=== PATIENT | male | born 1940 | race Two or more races ===

== ENCOUNTER 2021-08-27 22:50 | Inpatient (IN) | payer MEDICARE, OTHER ==
[~2021-08-27] VITALS: Ht 180.3 cm; Wt 90.7 kg
--- NOTE | 2021-08-27 23:07 | NUR ---
ZAHIRA 41 FROM [facility] C/O OF 2 MIN SEIZURE PT HAS NOT GOTTEN HIS DILANTIN. PT AMS AT THIS TIME A/OX0. ON SIMLPE MASK 8LPM SATTING AT 95%. SEIZURE SAFETY PRECAUTIONS IN PLACE.
--- NOTE | 2021-08-27 23:20 | NUR ---
LFA #20G S/L; PATENT AND INTACT. BLOOD COLLECTED AND SENT TO LAB
--- NOTE | 2021-08-27 23:20 | NUR ---
BS 252 DR. PATO MANJARREZ AWARE.
--- NOTE | 2021-08-27 23:34 | NUR ---
URINE COLLECTED AND SENT TO LAB
[2021-08-27 23:43] LABS: BASOPHILS # (AUTO) 0.1 K/uL (0.0-0.2); BASOPHILS % (AUTO) 1.2 % (0.0-2.0); EOSINOPHILS % (AUTO) 2.3 % (0.0-6.0); HEMATOCRIT 40 % (39-51); HEMOGLOBIN 13.4 g/dL (13.5-17.5); LYMPHOCYTES # (AUTO) 4.1 K/uL (0.8-4.8); LYMPHOCYTES % (AUTO) 37.7 % (20.0-44.0); MEAN CORPUSCULAR HGB CONC 34 g/dl (31.0-36.0); MEAN CORPUSCULAR VOLUME 93 fL (80-96); MONOCYTES # (AUTO) 0.6 K/uL (0.1-1.30); MONOCYTES % (AUTO) 5.9 % (2.0-12.0); NEUTROPHILS # (AUTO) 5.8 K/uL (1.8-8.9); NEUTROPHILS % (AUTO) 52.9 % (43.0-81.0); PLATELET COUNT (AUTO) 278 K/uL (150-450); RED BLOOD CELL COUNT(AUTO) 4.25 MIL/uL (4.5-6.0); WHITE BLOOD COUNT (AUTO) 10.9 K/uL (4.3-11.0)
[2021-08-27] MEDS ORDERED: PHENYTOIN SODIUM IV 100 MG/2ML VIAL ONE (23:48)
[2021-08-27 23:52] LABS: BILIRUBIN,URINE NEGATIVE (NEGATIVE); COLOR,URINE YELLOW (YELLOW); LEUKOCYTE ESTERASE ,URINE NEGATIVE (NEGATIVE); NITRITE, URINE NEGATIVE (NEGATIVE); PROTEIN,URINE TRACE mg/dl (NEGATIVE); UGLUCOSE >=1000 mg/dL (NEGATIVE); UROBILINOGEN,URINE 0.2 EU/dL (0.2)
[2021-08-27 23:58] LABS: BACTERIA,URINE Rare /HPF (None Seen); SQUAMOUS EPITHELIAL CELL,UR Few /HPF (None Seen); WBC,URINE NONE SEEN /HPF (0-3)
[2021-08-28] MEDS ORDERED: NS 0.9% IV ONE ×2
[2021-08-28] MEDS ORDERED: PHENYTOIN SODIUM IV ONE ×2
--- NOTE | 2021-08-28 | NUR ---
MRSA SWAB COLLECTED AND SENT TO LAB. PATIENT'S BELONGINGS LIST DONE.
--- NOTE | 2021-08-28 00:04 | NUR ---
COVID ANTIGEN SWAB COLLECTED AND SENT TO LAB
[2021-08-28 00:10] LABS: ALANINE AMINOTRANSFERASE 22 U/L (12-78); ALCOHOL, BLOOD < 3 mg/dL (0-0); ALKALINE PHOSPHATASE 143 U/L (46-116); ASPARTATE AMINOTRANSFERASE 17 U/L (15-37); BILIRUBIN,DIRECT 0.1 mg/dL (0.0-0.2); BILIRUBIN,TOTAL 0.3 mg/dL (0.2-1.0); CALCIUM, SERUM 8.7 mg/dL (8.5-10.1); CARBON DIOXIDE 35 mmol/L (21-32); CHLORIDE 96 mmol/L (98-107); CREATININE 0.8 mg/dL (0.6-1.3); GLUCOSE 278 mg/dL (74-106); SODIUM SERUM 136 mmol/L (136-145); TOTAL PROTEIN, SERUM 8.2 g/dL (6.4-8.2); UREA NITROGEN, BLOOD 20 mg/dL (7-18)
[2021-08-28 00:12] LABS: POTASSIUM 2.5 mmol/L (3.5-5.1)
--- NOTE | 2021-08-28 00:12 | NUR ---
POTASSIUM 2.5. DR. PATO MANJARREZ AWARE.
[2021-08-28 00:25] LABS: SERUM AMMONIA 8 umol/L (11-32)
[2021-08-28] MEDS ORDERED: POTASSIUM CL. PREMIX PERIPHER. 100 ML ONE (00:33)
[2021-08-28] MEDS: POTASSIUM CL. PREMIX PERIPHER. 50 ML IV SCH ×10 (00:42→14:19)
--- NOTE | 2021-08-28 00:43 | NUR ---
PT RETURNED TO ER BED [address]
[2021-08-28] MEDS ORDERED: Magnesium 1GM/D5W 100ML PREMIX 100 ML IV SCH (01:30)
[2021-08-28] MEDS ORDERED: MAGNESIUM HYDROXIDE 30 ML UDC PO PRN ×2 (01:30→09:30)
[2021-08-28] MEDS ORDERED: MAG HYDROX/AL HYDROX/SIMETH 30 ML UDC PO PRN (01:30)
[2021-08-28] MEDS ORDERED: ZOLPIDEM TARTRATE 5 MG TABLET PO PRN (01:30)
[2021-08-28] MEDS ORDERED: ONDANSETRON HCL/PF 4 MG/2 ML VIAL IVP PRN (01:30)
[2021-08-28] MEDS ORDERED: ACETAMINOPHEN 325 MG TABLET PO PRN (01:30)
[2021-08-28] MEDS ORDERED: Z GUARD REMEDY 4 OZ OINT TP PRN (01:30)
--- NOTE | 2021-08-28 02:25 | NUR ---
REPORT GIVEN TO RICHARD Pierson RN FOR ZOHRA
--- NOTE | 2021-08-28 02:45 | NUR ---
RFA #20G S/L PATENT AND INTACT
[2021-08-28] MEDS: Magnesium 1GM/D5W 100ML PREMIX 100 ML IV SCH ×2 (02:56→03:48)
--- NOTE | 2021-08-28 02:59 | NUR ---
TRANSFERRED TO 327 UNDER ACLS
--- NOTE | 2021-08-28 03:00 | NUR ---
EXCELLENCE MANAGER ADMITTING NOTES PATIENT ARRIVED ON UNIT VIA GURNEY, ACCOMPANIED BY 2 ER STAFF; PATIENT A/OX1, MUMBLES, OPENS EYES, RESPONDS TO NAME; BREATHING EVEN BUT LABORED; PATIENT ON 6LPM VIA SIMPLE MASK; PATIENT CONFUSED AND ATTEMPTING TO TAKE OFF MASK, PATIENT PLACED ON 6LPM VIA NC, TOLERATING WELL; SATTING 99%; VSS. LEFT CHEST WALL PACEMAKER PRESENT; TELE MONITOR READS VPACING 76BPM; PATIENT CURRENTLY RECEIVING 1ST BAG OF MAGNESIUM (STARTED IN ER). PER ER NURSE, 2 BAGS OF 8 ORDERED ADMINISTERED PRIOR TO ARRIVAL TO UNIT. BELONGINGS CHECKED, SKIN ASSESSMENT COMPLETED; SKIN INTACT; PATIENT HAS LFA #20 AND R FA #20 S/L, BOTH INTACT AND PATENT, TOLERATING IVF WELL; PATIENT ORIENTED TO UNIT AND TO STAFF, UNABLE TO COMPREHEND AT THIS TIME; SAFETY PRECAUTIONS IMPLEMENTED, SIDE RAILSX2 UP, WILL CONT TO MONITOR
--- NOTE | 2021-08-28 04:44 | NUR ---
AIRCRAFT REFUELLER NOTES PATIENT ON BAG 4 OF POTASSIUM; POTASSIUM BEHIND, PATIENT CAME UP TO UNIT AROUND 0300. CHARGE NURSE IS AWARE; WILL INFORM DAY SHIFT
--- NOTE | 2021-08-28 06:30 | NUR ---
BOTTOM SPRAYER NOTES BLOOD SUGAR 328, PAGED EPIC TO CONFIRM SLIDING SCALE; NO ANSWER; PATIENT IS CURRENTLY NPO; CHARGE NURSE AWARE; WILL INFORM DAY SHIFT REGARDING SLIDING SCALE;
--- NOTE | 2021-08-28 06:57 | NUR ---
INDIGO MIXER CLOSING NOTES PATIENT RESTING IN BED, PATIENT A/OX1, MUMBLES, OPENS EYES, RESPONDS TO NAME; BREATHING EVEN AND UNLABORED; PATIENT PLACED ON 6LPM VIA NC, TOLERATING WELL; SATTING 99%; LEFT CHEST WALL PACEMAKER PRESENT; TELE MONITOR READS VPACING 76BPM; PATIENT FINISHED MAGNESIUM ORDER; ADMINISTERED 6 OF 8 BAGS OF POTASSIUM ORDERED; WILL ENDORSE TO ONCOMING SHIFT; PATIENT HAS LFA #20 AND R FA #20 S/L, BOTH INTACT AND PATENT, TOLERATING IVF WELL; ACCU CHECK ORDERED BUT MD DID NOT CLARIFY IF MILD OR MODERATE SLIDING SCALE; ORDER SET AUTOMATICALLY ORDERED MILD SCALE; WILL ENDORSE TO AM SHIFT TO CONFIRM; PATIENT IS NPO; CHARGE NURSE AWARE; ALL NEEDS RENDERED; SAFETY PRECAUTIONS IMPLEMENTED, SIDE RAILSX2 UP, WILL ENDORSE ZOHRA TO ONCOMING SHIFT;
[2021-08-28 07:05] LABS: BASOPHILS % (AUTO) 0.3 % (0.0-2.0); HEMATOCRIT 38 % (39-51); HEMOGLOBIN 12.5 g/dL (13.5-17.5); LYMPHOCYTES # (AUTO) 2.9 K/uL (0.8-4.8); LYMPHOCYTES % (AUTO) 18.7 % (20.0-44.0); MEAN CORPUSCULAR HGB CONC 33 g/dl (31.0-36.0); MEAN CORPUSCULAR VOLUME 94 fL (80-96); MONOCYTES # (AUTO) 0.7 K/uL (0.1-1.30); MONOCYTES % (AUTO) 4.6 % (2.0-12.0); NEUTROPHILS # (AUTO) 11.9 K/uL (1.8-8.9); NEUTROPHILS % (AUTO) 76.4 % (43.0-81.0); PLATELET COUNT (AUTO) 257 K/uL (150-450); RED BLOOD CELL COUNT(AUTO) 4.04 MIL/uL (4.5-6.0); WHITE BLOOD COUNT (AUTO) 15.6 K/uL (4.3-11.0)
[2021-08-28] MEDS ORDERED: BLOOD SUGAR DIAGNOSTIC 1 EACH STRIP IN SCH (07:30)
[2021-08-28 08:18] LABS: CALCIUM, SERUM 8.7 mg/dL (8.5-10.1); CARBON DIOXIDE 35 mmol/L (21-32); CHLORIDE 94 mmol/L (98-107); CREATININE 0.8 mg/dL (0.6-1.3); GLUCOSE 297 mg/dL (74-106); MAGNESIUM 1.9 mg/dL (1.8-2.4); PHOSPHORUS 2.4 mg/dL (2.5-4.9); POTASSIUM 3.2 mmol/L (3.5-5.1); SODIUM SERUM 136 mmol/L (136-145); UREA NITROGEN, BLOOD 14 mg/dL (7-18)
[2021-08-28] MEDS ORDERED: LACT10SO3 PO (08:36)
[2021-08-28] MEDS ORDERED: APIX5TAB PO (08:36)
[2021-08-28] MEDS ORDERED: ONDA4TAB5 PO (08:36)
[2021-08-28] MEDS ORDERED: PHEN100C12 PO (08:36)
[2021-08-28] MEDS ORDERED: ATOR10TA PO (08:36)
[2021-08-28] MEDS ORDERED: LEVO50TA8 PO (08:36)
[2021-08-28] MEDS ORDERED: NA P133E RC (08:36)
[2021-08-28] MEDS ORDERED: ACET-868 PO (08:36)
[2021-08-28] MEDS ORDERED: LOSA50TA39 PO (08:36)
[2021-08-28] MEDS ORDERED: HYDR-4076 PO (08:36)
[2021-08-28] MEDS ORDERED: TAMS-12 PO (08:36)
[2021-08-28] MEDS ORDERED: FINA5TAB11 PO (08:36)
[2021-08-28] MEDS ORDERED: INSU100V27 SQ (08:36)
[2021-08-28] MEDS ORDERED: ESCI5TAB PO (08:36)
[2021-08-28] MEDS ORDERED: POLY17PO4 PO (08:36)
[2021-08-28] MEDS ORDERED: FURO-144 PO (08:36)
[2021-08-28] MEDS ORDERED: METO25TA20 PO (08:36)
[2021-08-28] MEDS ORDERED: MAGN400O6 PO (08:36)
[2021-08-28] MEDS ORDERED: FAMO20TA8 PO (08:36)
[2021-08-28] MEDS ORDERED: BISA10SU11 RC (08:36)
[2021-08-28] MEDS ORDERED: BISACODYL SUPP (10 MG) 10 MG/SUPP.RECT SUPP.RECT RC PRN (09:30)
[2021-08-28] MEDS ORDERED: hydrALAZINE HCL 25 MG TABLET PO PRN (09:30)
[2021-08-28] MEDS ORDERED: NA PHOS,M-B/NA PHOS,DI-BA 1 EA ENEMA RC PRN (09:30)
[2021-08-28] MEDS ORDERED: DEXTROSE 50%-WATER 50 ML DISP.SYRIN IV PRN (09:30)
[2021-08-28] MEDS: CEFEPIME 1 GM in IV D5W 50 ML IV SCH ×2 (09:54→21:15)
[2021-08-28] MEDS: PANTOPRAZOLE 40 MG VIAL IV SCH (10:48)
[2021-08-28] MEDS ORDERED: Sodium Phosphate 30 MMOL in IV NS 0.9% 250 ML IV SCH (11:00)
[2021-08-28 11:09] LABS: THYROID STIMULATING HORMONE 0.832 uIU/mL (0.358-3.74)
[2021-08-28] MEDS: BLOOD SUGAR DIAGNOSTIC 1 EACH STRIP IN SCH ×3 (12:03→21:31)
[2021-08-28 12:12] LABS: ABG BASE EXCESS 12.2 mmol/L; ABG OXYGEN SATURATION 96.3 % (92.0-98.5); ABG PCO2 42.5 mmHg (35.0-45.0); ABG PH 7.545 (7.350-7.450); AaDO2 161.3 mmHg; COHb 0.4 % (0.5-1.5); MetHb 0.3 % (0.0-1.5); O2Hb 95.6 % (94.0-97.0); SITE, ABG Right Brachial; VENT MODE, BG nasal cannula
[2021-08-28] MEDS: INSULIN REGULAR, HUMAN 100 UNIT/ML 3 ML VIAL SQ PRN ×2 (12:41→21:31)
[2021-08-28] MEDS ORDERED: PHENYTOIN SODIUM IV 100 MG/2ML VIAL IV SCH (13:00)
[2021-08-28] MEDS: ACETAMINOPHEN 650 MG/SUPP.RECT RC PRN (13:28)
--- NOTE | 2021-08-28 13:28 | NUR ---
PATIENT HAVING 103 F FEVER, COOLING MEASURES AND TYLENOL 650MG SUPPOSITORY WILL BE ADMINISTERED. WILL CONTINUE TO MONITOR.
[2021-08-28] MEDS ORDERED: ENOXAPARIN SODIUM 40 MG/0.4 ML DISP.SYRIN SQ SCH (14:00)
[2021-08-28] MEDS: PHENYTOIN SODIUM IV 100 MG/2ML VIAL IV SCH ×2 (15:38→21:16)
[2021-08-28] MEDS: LOSARTAN POTASSIUM 50 MG TABLET PO SCH (17:00)
[2021-08-28] MEDS: APIXABAN 5 MG TABLET PO SCH (17:00)
[2021-08-28] MEDS: METOPROLOL TARTRATE 25 MG TABLET PO SCH (17:00)
[2021-08-28] MEDS: FUROSEMIDE 40 MG TABLET PO SCH (17:00)
[2021-08-28] MEDS ORDERED: IV D5/ 0.9% NACL 1,000 ML IV PRN (18:00)
--- NOTE | 2021-08-28 19:25 | NUR ---
SAP BASIS CONSULTANT OPENING NOTES PATIENT RESTING IN BED, PATIENT A/OX0-1, MUMBLES, OPENS EYES, RESPONDS TO NAME; BREATHING EVEN AND UNLABORED; PATIENT PLACED ON 6LPM VIA NC, TOLERATING WELL; SATTING 99%; LEFT CHEST WALL PACEMAKER PRESENT; TELE MONITOR READS VPACING 80BPM; PATIENT HAS LFA #20 AND R FA #20 S/L, BOTH INTACT AND PATENT, TOLERATING IVF WELL; PATIENT IS NPO, PER MD NO MEDS BY MOUTH UNTIL FULLY AWAKE; CHARGE NURSE AWARE; PER PREVIOUS SHIFT, AWAITING FOR DAUGHTER TO CALL BACK FOR CONSENT REGARDING MRI OF BRAIN WITH CONTRAST; SAFETY PRECAUTIONS IMPLEMENTED, SIDE RAILSX2 UP, WILL CONT TO MONITOR
--- NOTE | 2021-08-28 19:39 | NUR ---
ELECTRONIC ENGINEERING TECHNICIAN NOTES SPOKE WITH DAUGHTER DANIEL, FOR CONSENT FOR MRI OF BRAIN WITH CONTRAST; DAUGHTER CONSENTED VIA TELEPHONE CALL; WITNESSED BY KEVON RICO; CHARGE NURSE AWARE; UNKNOWN SCHEDULE FOR MRI, WILL AWAIT ORDERS Addendum: 08/28/21 at 1955 by RAFAEL JOHNSON RN PER DAUGHTER, NORMAL FOR PATIENT TO BE CONFUSED AND SLEEPY POST SEIZURES; WILL CONT TO MONITOR
[2021-08-28 20:00] VITALS: BP 100/49
[2021-08-28] MEDS: ATORVASTATIN 10 MG TABLET PO SCH (21:20)
[2021-08-28] MEDS: TAMSULOSIN 0.4 MG CAP.SR.24H PO SCH (21:20)
[2021-08-29] VITALS: BP 106/53
[2021-08-29 04:00] VITALS: BP 125/55
[2021-08-29] MEDS: PHENYTOIN SODIUM IV 100 MG/2ML VIAL IV SCH (05:35)
[2021-08-29 07:24] LABS: BASOPHILS # (AUTO) 0.1 K/uL (0.0-0.2); BASOPHILS % (AUTO) 0.5 % (0.0-2.0); EOSINOPHILS % (AUTO) 0.1 % (0.0-6.0); HEMATOCRIT 39 % (39-51); HEMOGLOBIN 13.2 g/dL (13.5-17.5); LYMPHOCYTES # (AUTO) 3.5 K/uL (0.8-4.8); LYMPHOCYTES % (AUTO) 20.7 % (20.0-44.0); MEAN CORPUSCULAR HGB CONC 34 g/dl (31.0-36.0); MEAN CORPUSCULAR VOLUME 94 fL (80-96); MONOCYTES # (AUTO) 1.2 K/uL (0.1-1.30); NEUTROPHILS # (AUTO) 12.1 K/uL (1.8-8.9); NEUTROPHILS % (AUTO) 71.7 % (43.0-81.0); PLATELET COUNT (AUTO) 239 K/uL (150-450); WHITE BLOOD COUNT (AUTO) 16.9 K/uL (4.3-11.0)
[2021-08-29] MEDS: INSULIN REGULAR, HUMAN 100 UNIT/ML 3 ML VIAL SQ PRN ×4 (07:27→22:17)
[2021-08-29] MEDS: BLOOD SUGAR DIAGNOSTIC 1 EACH STRIP IN SCH ×4 (07:27→22:03)
[2021-08-29] MEDS: LEVOTHYROXINE SODIUM 50 MCG TABLET PO SCH ×2 (07:30→08:59)
--- NOTE | 2021-08-29 07:30 | NUR ---
PORTER MARINA OPENING NOTES RECEIVED PATIENT RESTING ON BED AND A/O X1, MUMBLES, OPENS EYES, RESPONDS TO NAME; BREATHING EVEN AND UNLABORED. ON O2 AT 6LPM VIA NASAL CANNULA TOLERATING WELL. NO SOB NOTED. NOT IN DISTRESS. WITH LEFT CHEST WALL PACEMAKER. ON TELE MONITOR CURRENTLY READING A PACING AT 70BPM. WITH IV ACCESS AT LFA #20 AND R FA #20 S/L, BOTH INTACT AND PATENT, TOLERATING IVF WELL. WITH NO SIGNS OF PAIN VIA FLACC LEVEL OF PAIN. SAFETY MEASURES IN PLACED. CALL LIGHT WITHIN REACH. BED ON LOWEST LOCKED POSITION, SIDE RAILS UP X2. WILL CONTINUE TO MONITOR.
--- NOTE | 2021-08-29 07:33 | NUR ---
QUALITY ASSURANCE NURSE CLOSING NOTES PATIENT RESTING IN BED, PATIENT A/OX0-1, MUMBLES, OPENS EYES, RESPONDS TO NAME; BREATHING EVEN AND UNLABORED; PATIENT PLACED ON 6LPM VIA NC, TOLERATING WELL; SATTING 99%; LEFT CHEST WALL PACEMAKER PRESENT; TELE MONITOR READS VPACING 70 - 80SBPM; PATIENT HAS LFA #20 AND R FA #20 S/L, BOTH INTACT AND PATENT, TOLERATING IVF WELL; PATIENT IS NPO, PER MD NO MEDS BY MOUTH UNTIL FULLY AWAKE; CHARGE NURSE AWARE; POSSIBLE MRI OF BRAIN WITH CONTRAST LATER TODAY, ONCOMING SHIFT MADE AWARE; ALL NEEDS RENDERED; SAFETY PRECAUTIONS IMPLEMENTED, SIDE RAILSX2 UP, WILL ENDORSE ZOHRA TO ONCOMING SHIFT
[2021-08-29] MEDS: LOSARTAN POTASSIUM 50 MG TABLET PO SCH ×3 (08:29→16:21)
[2021-08-29] MEDS: APIXABAN 5 MG TABLET PO SCH ×3 (08:30→16:22)
[2021-08-29] MEDS: POLYETHYLENE GLYCOL 3350 17 GM POWD.PACK PO SCH ×2 (08:30→08:57)
[2021-08-29] MEDS: ESCITALOPRAM OXALATE (10 MG) 10 MG TABLET PO SCH ×2 (08:30→08:58)
[2021-08-29] MEDS: METOPROLOL TARTRATE 25 MG TABLET PO SCH ×3 (08:30→16:20)
[2021-08-29] MEDS: FUROSEMIDE 40 MG TABLET PO SCH ×2 (08:30→08:58)
[2021-08-29] MEDS: FINASTERIDE (5 MG) 5 MG TABLET PO SCH ×2 (08:31→08:59)
[2021-08-29] MEDS: CEFEPIME 1 GM in IV D5W 50 ML IV SCH ×2 (08:35→22:37)
[2021-08-29] MEDS: PANTOPRAZOLE 40 MG VIAL IV SCH (08:35)
[2021-08-29 09:17] LABS: CREATININE 0.7 mg/dL (0.6-1.3); MAGNESIUM 1.9 mg/dL (1.8-2.4); PHOSPHORUS 3.1 mg/dL (2.5-4.9)
[2021-08-29] MEDS: POTASSIUM CHLORIDE 20 MEQ TAB.PRT.SR PO SCH ×3 (10:33→13:19)
[2021-08-29] MEDS ORDERED: PHENYTOIN SODIUM IV 100 MG/2ML VIAL IV SCH ×2 (13:00)
[2021-08-29] MEDS ORDERED: phenytoin SODIUM IV 400 MG in IV NS 0.9% 50 ML IV SCH (13:00)
[2021-08-29] MEDS: phenytoin SODIUM IV 300 MG in IV NS 0.9% 50 ML IV SCH ×2 (13:27→20:43)
[2021-08-29] MEDS: FUROSEMIDE 40 MG/4 ML VIAL IV SCH ×2 (16:20→20:44)
--- NOTE | 2021-08-29 19:30 | NUR ---
RN OPENING NOTE PATIENT RESTING ON BED, A/O X 1-2, OPENS EYES, RESPONDS TO TOUCH AND VERBAL STIMULI. PATIENT CURRENTLY ON 6 LPM VIA NASAL CANNULA, TOLERATING WELL NOT IN ANY RESPIRATORY DISTRESS, BREATHING EVEN AND UNLABORED. WITH LEFT CHEST WALL PACEMAKER, TELE MONITOR CURRENTLY READS V PACING AT 73 BPM. IV ACCESS ON LFA 20 G INFILTRATED AND PATIENT COMPLAINS OF PAIN WHEN FLUSHED, R FA 20 G ALSO INFILTRATED. WILL INSERT NEW IV ACCESS. PATIENT DOES NOT REPORT OF ANY BODY PAIN AT THIS TIME. SAFETY MEASURES IN PLACE: CALL LIGHT WITHIN REACH, BED LOCKED AND IN THE LOWEST POSITION, SIDE RAILS UP X 3. WILL MONITOR PATIENT CLOSELY.
--- NOTE | 2021-08-29 19:31 | NUR ---
CASINO FLOOR RUNNER CLOSING NOTES PATIENT RESTING ON BED AND A/O X1-2, OPENS EYES, RESPONDS TO NAME; BREATHING EVEN AND UNLABORED. ON O2 AT 6LPM VIA NASAL CANNULA TOLERATING WELL. NO SOB NOTED. NOT IN DISTRESS. WITH LEFT CHEST WALL PACEMAKER. ON TELE MONITOR CURRENTLY READING V PACING AT 73BPM. WITH IV ACCESS AT LFA #20 AND R FA #20 S/L, BOTH INTACT AND PATENT, TOLERATING IVF WELL. WITH NO SIGNS OF PAIN VIA FLACC LEVEL OF PAIN. SAFETY MEASURES IN PLACED. CALL LIGHT WITHIN REACH. BED ON LOWEST LOCKED POSITION, SIDE RAILS UP X2. WILL ENDORSE TO NEXT SHIFT FOR ZOHRA.
[2021-08-29 20:00] VITALS: BP 118/64
--- NOTE | 2021-08-29 21:25 | NUR ---
MULTIPLE PIV ATTEMPTS UNSUCCESSFUL BY THIS RN AND CHARGE NURSE, WILL CALL HEAD MIXER TO INSERT IV.
--- NOTE | 2021-08-29 22:00 | NUR ---
VALARIE JITTERBUG OPERATOR INSERTED R WRIST 22 G, PATENT AND INTACT.
[2021-08-29] MEDS: TAMSULOSIN 0.4 MG CAP.SR.24H PO SCH (22:03)
[2021-08-29] MEDS: ATORVASTATIN 10 MG TABLET PO SCH (22:03)
--- NOTE | 2021-08-29 22:15 | NUR ---
BS 180 MG/DL- 4 UNITS INSULIN COVERAGE GIVEN. WILL MONITOR FOR HYPO/HYPERGLYCEMIA.
[2021-08-30] VITALS: BP 116/58
[2021-08-30 04:00] VITALS: BP 124/60
[2021-08-30] MEDS: INSULIN REGULAR, HUMAN 100 UNIT/ML 3 ML VIAL SQ PRN ×4 (06:34→21:08)
[2021-08-30] MEDS: BLOOD SUGAR DIAGNOSTIC 1 EACH STRIP IN SCH ×4 (06:35→21:00)
--- NOTE | 2021-08-30 07:09 | NUR ---
RN CLOSING NOTE PATIENT RESTING ON BED, A/O X 1, OPENS EYES, RESPONDS TO TOUCH AND VERBAL STIMULI. PATIENT CURRENTLY ON 6 LPM VIA NASAL CANNULA, TOLERATING WELL NOT IN ANY RESPIRATORY DISTRESS, BREATHING EVEN AND UNLABORED. WITH LEFT CHEST WALL PACEMAKER, TELE MONITOR CURRENTLY READS V PACING AT 80 BPM. R WRIST 22 G PATENT AND INTACT, SALINE LOCKED AT THIS TIME. PATIENT DOES NOT REPORT OF ANY BODY PAIN AT THIS TIME. SAFETY MEASURES IN PLACE: CALL LIGHT WITHIN REACH, BED LOCKED AND IN THE LOWEST POSITION, SIDE RAILS UP X 3. ALL NEEDS MET AND ATTENDED, ALL ORDERS CARRIED OUT. WILL ENDORSE TO DAY SHIFT NURSE FOR ZOHRA.
[2021-08-30 07:10] LABS: BASOPHILS # (AUTO) 0.2 K/uL (0.0-0.2); EOSINOPHILS % (AUTO) 0.7 % (0.0-6.0); HEMATOCRIT 42 % (39-51); LYMPHOCYTES # (AUTO) 3.8 K/uL (0.8-4.8); LYMPHOCYTES % (AUTO) 22.7 % (20.0-44.0); MEAN CORPUSCULAR HGB CONC 33 g/dl (31.0-36.0); MEAN CORPUSCULAR VOLUME 95 fL (80-96); MONOCYTES # (AUTO) 1.1 K/uL (0.1-1.30); MONOCYTES % (AUTO) 6.5 % (2.0-12.0); NEUTROPHILS # (AUTO) 11.5 K/uL (1.8-8.9); NEUTROPHILS % (AUTO) 69.1 % (43.0-81.0); PLATELET COUNT (AUTO) 213 K/uL (150-450); RED BLOOD CELL COUNT(AUTO) 4.45 MIL/uL (4.5-6.0); WHITE BLOOD COUNT (AUTO) 16.7 K/uL (4.3-11.0)
[2021-08-30 07:26] LABS: CALCIUM, SERUM 7.9 mg/dL (8.5-10.1); CREATININE 0.8 mg/dL (0.6-1.3); POTASSIUM 3.2 mmol/L (3.5-5.1)
--- NOTE | 2021-08-30 07:30 | NUR ---
TOBACCO SORTER OPENING NOTE RECEIVED PATIENT RESTING ON BED, A/O X 1, OPENS EYES, WITH VERBAL AND TACTILE STIMULI. ON O2 AT 6 LPM VIA NASAL CANNULA, TOLERATING WELL. NO RESPIRATORY DISTRESS NOTED. BREATHING EVEN AND UNLABORED. WITH LEFT CHEST WALL PACEMAKER, ON TELE MONITOR. R WRIST 22 G PATENT AND INTACT, SALINE LOCKED AT THIS TIME. NO PAIN AT THIS TIME. SAFETY MEASURES IN PLACE, CALL LIGHT WITHIN REACH, BED LOCKED AND IN THE LOWEST POSITION, SIDE RAILS UP X 3 AND PADDED FOR SEIZURE PRECAUTION. WILL CONTINUE TO MONITOR.
[2021-08-30] MEDS: LEVOTHYROXINE SODIUM 50 MCG TABLET PO SCH (07:31)
[2021-08-30 08:00] VITALS: BP 128/65
[2021-08-30] MEDS ORDERED: CEFTRIAXONE 1GM BAG (ER ONLY) 1 GM/50 ML PIGGYBACK IV ONE (09:00)
[2021-08-30] MEDS: phenytoin SODIUM IV 300 MG in IV NS 0.9% 50 ML IV SCH ×3 (09:02→20:25)
[2021-08-30] MEDS: PANTOPRAZOLE 40 MG VIAL IV SCH (09:16)
[2021-08-30] MEDS: FINASTERIDE (5 MG) 5 MG TABLET PO SCH (09:17)
[2021-08-30] MEDS: POLYETHYLENE GLYCOL 3350 17 GM POWD.PACK PO SCH (09:17)
[2021-08-30] MEDS: LOSARTAN POTASSIUM 50 MG TABLET PO SCH ×2 (09:17→16:33)
[2021-08-30] MEDS: ESCITALOPRAM OXALATE (10 MG) 10 MG TABLET PO SCH (09:17)
[2021-08-30] MEDS: METOPROLOL TARTRATE 25 MG TABLET PO SCH ×2 (09:21→16:33)
[2021-08-30] MEDS: APIXABAN 5 MG TABLET PO SCH ×2 (09:23→16:34)
[2021-08-30] MEDS ORDERED: POTASSIUM CHLORIDE 20 MEQ POWDER PACKET PO ONE (09:30)
[2021-08-30] MEDS ORDERED: POTASSIUM CHLORIDE 20 MEQ TAB.PRT.SR PO SCH (10:00)
[2021-08-30] MEDS: CEFTRIAXONE 1 G in IV D5W 50 ML IV SCH (11:33)
[2021-08-30 12:00] VITALS: BP 119/61
[2021-08-30 16:00] VITALS: BP 133/60
--- NOTE | 2021-08-30 19:30 | NUR ---
CROCHETER OPENING NOTES RECEIVED PATIENT LYING IN BED, AWAKE. HOB ELEVATED AT 60 DEGREES. A/O X2, NON-VERBAL BUT RESPONSIVE TO INSTRUCTIONS. NO SOB OR NOTED. ON O2 AT 6 LPM VIA NASAL CANULA. ON TELE MONITOR READING SINUS RHYTHM WITH V-PACING, BBB, 1ST DEGREE AV BLOCK AT 70 BPM. HAS RIGHT WRIST IV ACCESS #22G, REDNESS AND SWELLING NOTED. HAS RIGHT UPPER ARM MIDLINE #20G AND SALINE LOCKED. DRESSING INTACT, NO LEAKING NOTED. SAFETY MEASURES IN PLACE. SIDE RAILS PADDED. WILL CONTINUE PLAN OF CARE.
--- NOTE | 2021-08-30 19:30 | NUR ---
FLAKE MILLER WHEAT AND OATS CLOSING NOTE PATIENT RESTING ON BED, A/O X 1, OPENS EYES, WITH VERBAL AND TACTILE STIMULI. ON O2 AT 6 LPM VIA NASAL CANNULA, TOLERATING WELL. NO RESPIRATORY DISTRESS NOTED. BREATHING EVEN AND UNLABORED. WITH LEFT CHEST WALL PACEMAKER, ON TELE MONITOR. R WRIST 22 G PATENT AND INTACT, SALINE LOCKED AT THIS TIME. RIGHT UPPER ARM MIDLINE INTACT.ALL DUE MEDS GIVEN ORDERED. NO PAIN NOTED AT THIS TIME. SAFETY MEASURES IN PLACE, CALL LIGHT WITHIN REACH, BED LOCKED AND IN THE LOWEST POSITION, SIDE RAILS UP X 3 AND PADDED FOR SEIZURE PRECAUTION. WILL ENDORSE FOR ZOHRA.
[2021-08-30 20:00] VITALS: BP 121/65
--- NOTE | 2021-08-30 21:00 | NUR ---
CARPENTER ASSEMBLER NOTES REMOVED RIGHT WRIST IV ACCESS D/T REDNESS AND MILD SWELLING. ELEVATED ARM. RIGHT UPPER ARM MIDLINE FLUSHED AND PATENT.
[2021-08-30] MEDS: ATORVASTATIN 10 MG TABLET PO SCH (21:02)
[2021-08-30] MEDS: TAMSULOSIN 0.4 MG CAP.SR.24H PO SCH (21:02)
[2021-08-30] MEDS: INSULIN GLARGINE, 100 UNIT/ML CARTRIDGE SQ SCH (21:09)
[2021-08-31] VITALS: BP 111/57
--- NOTE | 2021-08-31 01:00 | NUR ---
CHANNEL PROGRAM MANAGER NOTES O2 LOWERED TO 4 LPM FROM 6 LPM. PATIENT IS SATURATING BETWEEN 95-97%. WILL CONTINUE TO MONITOR.
[2021-08-31 04:00] VITALS: BP 140/71
--- NOTE | 2021-08-31 05:49 | NUR ---
MILD FEVER OF 99.2 NOTED, TYLENOL SUPPOSITORY ADMINISTERED.
[2021-08-31] MEDS: ACETAMINOPHEN 650 MG/SUPP.RECT RC PRN (05:54)
--- NOTE | 2021-08-31 06:14 | NUR ---
YACHT CAPTAIN CLOSING NOTES PATIENT LYING IN BED, SLEEPING INTERMITTENTLY. EASY TO AROUSE. HOB ELEVATED AT 45 DEGREES. A/O X1. BREATHING EVEN AND UNLABORED. ON O2 AT 3 LPM VIA NASAL CANULA SATURATING BETWEEN 94-97%. HAD 2 EPISODES OF SEIZURE THAT LASTED 1 MINUTE DURING THIS SHIFT. ON TELE MONITOR READING V-PACING AT 75 BPM. DISCONTINUE RIGHT WRIST IV ACCESS. HAS RIGHT UPPER ARM MIDLINE #20G AND SALINE LOCKED. INTACT, PATENT AND FLUSHING. SKIN INTACT AND WNL. LEFT FOREARM REDNESS AND BRUISE NOTED. ABDOMEN SOFT AND NON-TENDER. ALL MEDS GIVEN AND NEEDS ATTENDED. ON ASPIRATION PRECAUTIONS. SAFETY MEASURES IN PLACE: BED LOCKED, LOW AND ALARM ON, SIDE RAILS UP X3 AND PADDED, CALL LIGHT WITHIN REACH.
[2021-08-31 06:18] LABS: BASOPHILS # (AUTO) 0.1 K/uL (0.0-0.2); BASOPHILS % (AUTO) 0.6 % (0.0-2.0); EOSINOPHILS % (AUTO) 1.6 % (0.0-6.0); HEMATOCRIT 40 % (39-51); HEMOGLOBIN 13.2 g/dL (13.5-17.5); LYMPHOCYTES % (AUTO) 21.3 % (20.0-44.0); MEAN CORPUSCULAR HGB CONC 33 g/dl (31.0-36.0); MEAN CORPUSCULAR VOLUME 96 fL (80-96); MONOCYTES % (AUTO) 6.8 % (2.0-12.0); NEUTROPHILS # (AUTO) 9.7 K/uL (1.8-8.9); NEUTROPHILS % (AUTO) 69.7 % (43.0-81.0); PLATELET COUNT (AUTO) 205 K/uL (150-450); RED BLOOD CELL COUNT(AUTO) 4.23 MIL/uL (4.5-6.0)
[2021-08-31] MEDS: BLOOD SUGAR DIAGNOSTIC 1 EACH STRIP IN SCH ×4 (06:21→22:47)
[2021-08-31] MEDS: INSULIN REGULAR, HUMAN 100 UNIT/ML 3 ML VIAL SQ PRN ×4 (06:32→22:49)
[2021-08-31 06:52] LABS: CALCIUM, SERUM 7.6 mg/dL (8.5-10.1); CREATININE 0.6 mg/dL (0.6-1.3); POTASSIUM 3.2 mmol/L (3.5-5.1)
--- NOTE | 2021-08-31 07:15 | NUR ---
TAX SERVICES INTERN OPENING NOTES PATIENT LYING IN BED, SLEEPING INTERMITTENTLY. EASY TO AROUSE. HOB ELEVATED AT 45 DEGREES. A/O X1. BREATHING EVEN AND UNLABORED. ON O2 AT 3 LPM VIA NASAL CANULA SATURATING BETWEEN 95-97%. ON TELE MONITOR READING V-PACING AT 76 BPM. HAS RIGHT UPPER ARM MIDLINE #20G AND SALINE LOCKED. INTACT, PATENT AND FLUSHING. SKIN INTACT AND WITHIN NORMAL LIMITS. SAFETY MEASURES IN PLACE. WILL CONTINUE TO MONITOR ACCORDINGLY.
[2021-08-31] MEDS: LEVOTHYROXINE SODIUM 50 MCG TABLET PO SCH (07:52)
[2021-08-31 08:00] VITALS: BP 131/59
[2021-08-31] MEDS: LOSARTAN POTASSIUM 50 MG TABLET PO SCH ×2 (09:04→17:47)
[2021-08-31] MEDS: FINASTERIDE (5 MG) 5 MG TABLET PO SCH (09:04)
[2021-08-31] MEDS: POLYETHYLENE GLYCOL 3350 17 GM POWD.PACK PO SCH (09:04)
[2021-08-31] MEDS: METOPROLOL TARTRATE 25 MG TABLET PO SCH ×2 (09:04→17:42)
[2021-08-31] MEDS: ESCITALOPRAM OXALATE (10 MG) 10 MG TABLET PO SCH (09:04)
[2021-08-31] MEDS: APIXABAN 5 MG TABLET PO SCH ×2 (09:06→17:44)
[2021-08-31] MEDS: phenytoin SODIUM IV 300 MG in IV NS 0.9% 50 ML IV SCH ×3 (09:18→20:34)
[2021-08-31] MEDS: PANTOPRAZOLE 40 MG/PACK PACK PO SCH (09:18)
[2021-08-31] MEDS ORDERED: POTASSIUM CHLORIDE 20 MEQ POWDER PACKET PO SCH (10:00)
[2021-08-31] MEDS: CEFTRIAXONE 1 G in IV D5W 50 ML IV SCH (10:32)
[2021-08-31 16:00] VITALS: BP 140/61
--- NOTE | 2021-08-31 19:00 | NUR ---
POSTER CLOSING NOTES PATIENT LYING IN BED, AWAKE, HOB ELEVATED AT 45 DEGREES. A/O X1. BREATHING EVEN AND UNLABORED. ON O2 AT 3 LPM VIA NASAL CANULA SATURATING BETWEEN 95-97%. ON TELE MONITOR READING V-PACING AT 76 BPM. HAS RIGHT UPPER ARM MIDLINE #20G AND SALINE LOCKED. INTACT, PATENT AND FLUSHING. SKIN INTACT AND WITHIN NORMAL LIMITS.NEEDS ATTENDED AND ANTICIPATED. SAFETY MEASURES IN PLACE. WILL ENDORSE TO NIGHT NURSE FOR CONTINUITY OF CARE
[2021-08-31 20:00] VITALS: BP 134/52
--- NOTE | 2021-08-31 20:00 | NUR ---
RN NOTES RECEIVED PATIENT IN BED, ALERT/ORIENTEDX1, 3LPM VIA NC, NO COUGHING, DIMINISHED LUNG SOUNDS, SEIZURE PRECAUTION AND FALL PRECAUTION, KEVIN MIDLINE, SPEAKS SAMI, RESTLESS, REMOVING SHEETS AND BLANKETS, BED ALARM ON, KEPT SAFE, WILL CONTINUE TO MONITOR.
[2021-08-31] MEDS: TAMSULOSIN 0.4 MG CAP.SR.24H PO SCH (22:37)
[2021-08-31] MEDS: ATORVASTATIN 10 MG TABLET PO SCH (22:37)
[2021-08-31] MEDS: INSULIN GLARGINE, 100 UNIT/ML CARTRIDGE SQ SCH (22:50)
[2021-09-01] MEDS: BLOOD SUGAR DIAGNOSTIC 1 EACH STRIP IN SCH ×4 (06:30→22:05)
[2021-09-01] MEDS: INSULIN REGULAR, HUMAN 100 UNIT/ML 3 ML VIAL SQ PRN ×4 (06:32→22:08)
--- NOTE | 2021-09-01 06:35 | NUR ---
ALERT/AWAKE, CONFUSED, RESTLESS, [place] SPEAKING ONLY, REMOVING NC, NO SOB, INCONTINENT OF BOWEL AND BLADDER, CLEAR LIQUID DIET, CRUSHED MEDICATIONS, DILANTIN IV TID, KEVIN MIDLINE HL ONLY, ACCUCHECK, SLIDING SCALE, FOR NEURO CONSULT WITH DR. HYLTON. CONTINUE ROCEPHIN IV, FALL PRECAUTION
[2021-09-01] MEDS: POLYETHYLENE GLYCOL 3350 17 GM POWD.PACK PO SCH (09:42)
[2021-09-01] MEDS: FINASTERIDE (5 MG) 5 MG TABLET PO SCH (09:42)
[2021-09-01] MEDS: PANTOPRAZOLE 40 MG/PACK PACK PO SCH (09:42)
[2021-09-01] MEDS: METOPROLOL TARTRATE 25 MG TABLET PO SCH ×2 (09:42→16:53)
[2021-09-01] MEDS: ESCITALOPRAM OXALATE (10 MG) 10 MG TABLET PO SCH (09:42)
[2021-09-01] MEDS: LOSARTAN POTASSIUM 50 MG TABLET PO SCH (09:43)
[2021-09-01] MEDS: APIXABAN 5 MG TABLET PO SCH ×2 (09:44→16:54)
[2021-09-01] MEDS: phenytoin SODIUM IV 300 MG in IV NS 0.9% 50 ML IV SCH ×2 (09:46→13:01)
[2021-09-01] MEDS: LEVOTHYROXINE SODIUM 50 MCG TABLET PO SCH (09:48)
[2021-09-01 09:58] LABS: BASOPHILS # (AUTO) 0.1 K/uL (0.0-0.2); BASOPHILS % (AUTO) 0.5 % (0.0-2.0); EOSINOPHILS % (AUTO) 0.4 % (0.0-6.0); HEMATOCRIT 41 % (39-51); HEMOGLOBIN 13.5 g/dL (13.5-17.5); LYMPHOCYTES # (AUTO) 4.2 K/uL (0.8-4.8); LYMPHOCYTES % (AUTO) 24.7 % (20.0-44.0); MEAN CORPUSCULAR HGB CONC 33 g/dl (31.0-36.0); MEAN CORPUSCULAR VOLUME 94 fL (80-96); MONOCYTES # (AUTO) 1.7 K/uL (0.1-1.30); MONOCYTES % (AUTO) 9.9 % (2.0-12.0); NEUTROPHILS # (AUTO) 10.9 K/uL (1.8-8.9); NEUTROPHILS % (AUTO) 64.5 % (43.0-81.0); PLATELET COUNT (AUTO) 228 K/uL (150-450); RED BLOOD CELL COUNT(AUTO) 4.29 MIL/uL (4.5-6.0); WHITE BLOOD COUNT (AUTO) 16.9 K/uL (4.3-11.0)
[2021-09-01 10:18] LABS: CALCIUM, SERUM 8.2 mg/dL (8.5-10.1); CARBON DIOXIDE 25 mmol/L (21-32); CHLORIDE 109 mmol/L (98-107); CREATININE 0.5 mg/dL (0.6-1.3); GLUCOSE 153 mg/dL (74-106); SODIUM SERUM 143 mmol/L (136-145); UREA NITROGEN, BLOOD 8 mg/dL (7-18)
[2021-09-01] MEDS: CEFTRIAXONE 1 G in IV D5W 50 ML IV SCH (10:21)
[2021-09-01] MEDS: VALSARTAN 80 MG TABLET PO SCH (10:46)
--- NOTE | 2021-09-01 10:55 | NUR ---
RN NOTES SPOKE W/ DANIEL, FAMILY, MADE AWARE OF PATIENT'S CONDITION/PROGRESS. WILL VISIT PATIENT LATER.
--- NOTE | 2021-09-01 14:29 | NUR ---
RN NOTES FAMILY AT BEDSIDE TO SEE THE PATIENT. REQUESTED FOR CXR AND DILANTIN LEVEL. ESTEFANÍA PIEDRA MADE AWARE W/ ORDER NOTED.
--- NOTE | 2021-09-01 15:07 | NUR ---
RN KEL SANCHEZ DTR, IS PRIMARY CONTACT FOR PATIENT. HER NUMBER IS [phone].
[2021-09-01] MEDS ORDERED: LORAZEPAM INJ 2 MG/ML VIAL IV ONE (15:30)
[2021-09-01] MEDS: QUETIAPINE FUMARATE 25 MG TABLET PO SCH (16:52)
--- NOTE | 2021-09-01 17:53 | NUR ---
RN NOTES PHLEB TECH AT BEDSIDE FOR BLOOD DRAW.
--- NOTE | 2021-09-01 19:25 | NUR ---
RN NOTES PATIENT IN BED, CONFUSED, REORIENTED APPLICABLE. SEIZURE AND ASPIRATION PRECS OBSERVED. BEDSIDE ENDORSEMENT DONE W/ COOK DESSERT RN.
[2021-09-01] MEDS: VANCOMYCIN 1.25 GM in IV D5W 250 ML IV SCH ×3 (19:46→21:00)
[2021-09-01 20:00] VITALS: BP 123/72
--- NOTE | 2021-09-01 20:25 | NUR ---
RECEIVED IN BED, ALERT AND AWAKE, RESTLESS, ROOM AIR NOW, SPO2 97%, GAIL MIDLINE, SECURED WITH DRESSING, VANCOMYCIN INFUSING, INCONTINENT OF BOWEL AND BLADDER, SEIZURE AND FALL PRECAUTION, KEPT SAFE, WILL CONTINUE TO MONITOR.
[2021-09-01 20:41] VITALS: BP 123/72
[2021-09-01] MEDS: PHENYTOIN SUSP UDC 100 MG/4 ML UDC PO SCH (21:00)
--- NOTE | 2021-09-01 21:07 | NUR ---
VANCOMYCIN DOSE SCHEDULED AT 2100 NOT GIVEN, 1900 DOSE STILL INFUSING.
[2021-09-01] MEDS: TAMSULOSIN 0.4 MG CAP.SR.24H PO SCH (21:08)
[2021-09-01] MEDS: ATORVASTATIN 10 MG TABLET PO SCH (21:08)
[2021-09-01 21:57] LABS: BILIRUBIN,DIRECT 0.4 mg/dL (0.0-0.2); BILIRUBIN,TOTAL 0.8 mg/dL (0.2-1.0)
[2021-09-01] MEDS: INSULIN GLARGINE, 100 UNIT/ML CARTRIDGE SQ SCH (22:07)
[2021-09-01] MEDS ORDERED: PHENYTOIN EXTENDED RELEASE 100 MG CAPSULE PO ONE (22:25)
--- NOTE | 2021-09-01 23:12 | NUR ---
NOTIFIED CIGAR PACKING EXAMINER LISA LACTIC ACID 2.4 PREVIOUSLY 2.9, PT ON VANCOMYCIN 1.25 GM Q8HRS, REPEAT BLOOD CULTURE DONE, NO NEW ORDER.
--- NOTE | 2021-09-01 23:24 | NUR ---
DILANTIN LIQUID NOT GIVEN, MEDICATION NOT AVAILABLE IN 2 PYXIS IN 3WEST, NOTIFIED REFRIGERATION MECHANIC, MEDICATION NOT FOUND. PYXIS IN SUBACUTE ATTEMPTED, NO MEDICATION FOUND.
[2021-09-02] MEDS: VANCOMYCIN 1.25 GM in IV D5W 250 ML IV SCH ×3 (05:31→21:30)
--- NOTE | 2021-09-02 06:26 | NUR ---
ALERT AND AWAKE, CONFUSED, RESTLESS, ROOM AIR, NO RESPIRATORY DISTRESS, INCONTINENT OF BOWEL AND BLADDER. DILANTIN LIQUID NOT GIVEN, MEDICATION NOT AVAILABLE, WBC ELEVATED, LACTIC ACID ELEVATED, TRENDING DOWN, FROM 2.9 TO 2.4, STARTED ON VANCOMYCIN 1.25 GM Q8 HOURS + ROCEPHIN Q24 HRS, REPEAT BLOOD CULTURE, ID CONSULT AND NEURO CONSULT, SEIZURE PRECAUTION, FALL PRECAUTION.
[2021-09-02] MEDS: INSULIN REGULAR, HUMAN 100 UNIT/ML 3 ML VIAL SQ PRN ×3 (06:33→21:48)
[2021-09-02] MEDS: BLOOD SUGAR DIAGNOSTIC 1 EACH STRIP IN SCH ×5 (06:36→21:44)
--- NOTE | 2021-09-02 07:00 | NUR ---
MS RN OPENING NOTE PATIENT ALERT AND AWAKE BUT CONFUSED AND RESTLESS. TOLERATING WELL ON ROOM AIR WITH NO S/S OF RESPIRATORY DISTRESS. NO COMPLAINTS OF PAIN OR DISCOMFORT, BREATHING UNLABORED. PERIPHERAL IV LINES CLEAN, INTACT, AND FLUSHING WELL. SAFETY AND SEIZURE PRECAUTIONS IN PLACE: SIDE RAILS PADDED, BED IN LOWEST LOCKED POSITION, SIDE RAILS UP X 3, CALL LIGHT WITHIN REACH. WILL CONTINUE TO MONITOR.
[2021-09-02 08:16] LABS: BASOPHILS # (AUTO) 0.1 K/uL (0.0-0.2); BASOPHILS % (AUTO) 0.6 % (0.0-2.0); EOSINOPHILS % (AUTO) 0.4 % (0.0-6.0); HEMATOCRIT 39 % (39-51); LYMPHOCYTES # (AUTO) 3.7 K/uL (0.8-4.8); LYMPHOCYTES % (AUTO) 20.6 % (20.0-44.0); MEAN CORPUSCULAR HGB CONC 34 g/dl (31.0-36.0); MEAN CORPUSCULAR VOLUME 94 fL (80-96); MONOCYTES # (AUTO) 1.3 K/uL (0.1-1.30); MONOCYTES % (AUTO) 7.1 % (2.0-12.0); NEUTROPHILS # (AUTO) 12.9 K/uL (1.8-8.9); NEUTROPHILS % (AUTO) 71.3 % (43.0-81.0); PLATELET COUNT (AUTO) 212 K/uL (150-450); RED BLOOD CELL COUNT(AUTO) 4.12 MIL/uL (4.5-6.0); WHITE BLOOD COUNT (AUTO) 18.1 K/uL (4.3-11.0)
[2021-09-02 08:28] VITALS: BP 114/54
[2021-09-02 08:46] LABS: CALCIUM, SERUM 8.3 mg/dL (8.5-10.1); CARBON DIOXIDE 29 mmol/L (21-32); CHLORIDE 109 mmol/L (98-107); CREATININE 0.7 mg/dL (0.6-1.3); GLUCOSE 193 mg/dL (74-106); POTASSIUM 3.5 mmol/L (3.5-5.1); SODIUM SERUM 146 mmol/L (136-145); UREA NITROGEN, BLOOD 9 mg/dL (7-18)
[2021-09-02] MEDS: PHENYTOIN SUSP UDC 100 MG/4 ML UDC PO SCH ×3 (09:00→21:22)
[2021-09-02] MEDS: METOPROLOL TARTRATE 25 MG TABLET PO SCH ×2 (09:00→17:00)
[2021-09-02] MEDS: VALSARTAN 80 MG TABLET PO SCH (09:00)
[2021-09-02] MEDS: QUETIAPINE FUMARATE 25 MG TABLET PO SCH ×2 (09:35→17:28)
[2021-09-02] MEDS: FINASTERIDE (5 MG) 5 MG TABLET PO SCH (09:35)
[2021-09-02] MEDS: PANTOPRAZOLE 40 MG/PACK PACK PO SCH (09:35)
[2021-09-02] MEDS: POLYETHYLENE GLYCOL 3350 17 GM POWD.PACK PO SCH (09:35)
[2021-09-02] MEDS: ESCITALOPRAM OXALATE (10 MG) 10 MG TABLET PO SCH (09:36)
[2021-09-02] MEDS: APIXABAN 5 MG TABLET PO SCH ×2 (09:40→17:00)
[2021-09-02] MEDS: CEFTRIAXONE 1 G in IV D5W 50 ML IV SCH (10:05)
[2021-09-02] MEDS: LEVOTHYROXINE SODIUM 50 MCG TABLET PO SCH (10:15)
--- NOTE | 2021-09-02 19:00 | NUR ---
MS RN CLOSING NOTE PATIENT ALERT AND AWAKE BUT CONFUSED AND RESTLESS. TOLERATING WELL ON ROOM AIR WITH NO S/S OF RESPIRATORY DISTRESS. NO COMPLAINTS OF PAIN OR DISCOMFORT, BREATHING UNLABORED. PERIPHERAL IV LINES CLEAN, INTACT, AND FLUSHING WELL. SAFETY AND SEIZURE PRECAUTIONS IN PLACE: SIDE RAILS PADDED, BED IN LOWEST LOCKED POSITION, SIDE RAILS UP X 3, CALL LIGHT WITHIN REACH. ALL NEEDS MET. WILL ENDORSE TO CHIEF ELECTRICIAN FOR ZOHRA.
--- NOTE | 2021-09-02 19:14 | NUR ---
MS RN OPENING NOTE RECEIVED PATIENT IN BED AWAKE AND ALERT BUT PATIENT IS VERY CONFUSED, ANXIOUS AND RESTLESS. REORIENTATION PROVIDED. TOLERATING WELL ON ROOM AIR WITH NO S/S OF RESPIRATORY DISTRESS. NO COMPLAINTS OF PAIN OR DISCOMFORT, BREATHING UNLABORED. WITH IV ACCESS ON KEVIN MIDLINE PATENT, INTACT, AND FLUSHING WELL. SAFETY AND SEIZURE PRECAUTIONS IN PLACE: SIDE RAILS PADDED, BED IN LOWEST LOCKED POSITION, SIDE RAILS UP X 3, CALL LIGHT WITHIN REACH. WILL CONTINUE TO MONITOR THROUGHOUT THE SHIFT.
[2021-09-02 20:00] VITALS: BP 145/60
[2021-09-02] MEDS: CEFEPIME 2 GM in IV D5W 100 ML IV SCH (20:16)
[2021-09-02] MEDS: ATORVASTATIN 10 MG TABLET PO SCH (21:22)
[2021-09-02] MEDS: TAMSULOSIN 0.4 MG CAP.SR.24H PO SCH (21:22)
[2021-09-02] MEDS: INSULIN GLARGINE, 100 UNIT/ML CARTRIDGE SQ SCH (21:46)
[2021-09-02] MEDS: ACETAMINOPHEN 650 MG/SUPP.RECT RC PRN (22:01)
--- NOTE | 2021-09-02 22:01 | NUR ---
MILD FEVER OF 99.4 NOTED, TYLENOL SUPPOSITORY ADMINISTERED. WILL CONTINUE TO MONITOR.
[2021-09-03] MEDS: CEFEPIME 2 GM in IV D5W 100 ML IV SCH ×3 (04:01→20:15)
[2021-09-03] MEDS: VANCOMYCIN 1.25 GM in IV D5W 250 ML IV SCH ×3 (05:01→21:42)
[2021-09-03] MEDS: INSULIN REGULAR, HUMAN 100 UNIT/ML 3 ML VIAL SQ PRN ×4 (06:35→21:58)
[2021-09-03] MEDS: BLOOD SUGAR DIAGNOSTIC 1 EACH STRIP IN SCH ×4 (06:36→21:43)
--- NOTE | 2021-09-03 07:01 | NUR ---
MS RN CLOSING NOTE PATIENT IN BED ASLEEP, AROUSES EASILY. PATIENT REMAINS CONFUSED. REORIENTATION PROVIDED. TOLERATING WELL ON ROOM AIR WITH NO S/S OF RESPIRATORY DISTRESS. NO COMPLAINTS OF PAIN OR DISCOMFORT, BREATHING UNLABORED. WITH IV ACCESS ON KEVIN MIDLINE PATENT, INTACT, AND FLUSHING WELL. SAFETY AND SEIZURE PRECAUTIONS IN PLACE: SIDE RAILS PADDED, BED IN LOWEST LOCKED POSITION, SIDE RAILS UP X 3, CALL LIGHT WITHIN REACH. WILL ENDORSE TO AM SHIFT FOR CONTINUITY OF CARE.
[2021-09-03 08:47] VITALS: BP 95/70
[2021-09-03 08:57] LABS: BASOPHILS # (AUTO) 0.2 K/uL (0.0-0.2); EOSINOPHILS % (AUTO) 2.1 % (0.0-6.0); HEMATOCRIT 38 % (39-51); HEMOGLOBIN 12.6 g/dL (13.5-17.5); LYMPHOCYTES # (AUTO) 3.1 K/uL (0.8-4.8); LYMPHOCYTES % (AUTO) 18.9 % (20.0-44.0); MEAN CORPUSCULAR HGB CONC 33 g/dl (31.0-36.0); MEAN CORPUSCULAR VOLUME 94 fL (80-96); MONOCYTES # (AUTO) 1.6 K/uL (0.1-1.30); MONOCYTES % (AUTO) 9.6 % (2.0-12.0); NEUTROPHILS # (AUTO) 11.3 K/uL (1.8-8.9); NEUTROPHILS % (AUTO) 68.4 % (43.0-81.0); PLATELET COUNT (AUTO) 197 K/uL (150-450); RED BLOOD CELL COUNT(AUTO) 4.04 MIL/uL (4.5-6.0); WHITE BLOOD COUNT (AUTO) 16.5 K/uL (4.3-11.0)
[2021-09-03 09:22] LABS: CALCIUM, SERUM 7.7 mg/dL (8.5-10.1); CREATININE 0.6 mg/dL (0.6-1.3); POTASSIUM 3.3 mmol/L (3.5-5.1)
[2021-09-03] MEDS: PHENYTOIN SUSP UDC 100 MG/4 ML UDC PO SCH ×3 (09:55→20:17)
[2021-09-03] MEDS: VALSARTAN 80 MG TABLET PO SCH (09:55)
[2021-09-03] MEDS: POLYETHYLENE GLYCOL 3350 17 GM POWD.PACK PO SCH (09:56)
[2021-09-03] MEDS: QUETIAPINE FUMARATE 25 MG TABLET PO SCH ×2 (09:56→17:39)
[2021-09-03] MEDS: METOPROLOL TARTRATE 25 MG TABLET PO SCH ×2 (09:56→17:38)
[2021-09-03] MEDS: PANTOPRAZOLE 40 MG/PACK PACK PO SCH (09:56)
[2021-09-03] MEDS: FINASTERIDE (5 MG) 5 MG TABLET PO SCH (09:57)
[2021-09-03] MEDS: ESCITALOPRAM OXALATE (10 MG) 10 MG TABLET PO SCH (09:57)
[2021-09-03] MEDS: APIXABAN 5 MG TABLET PO SCH ×2 (09:58→17:36)
[2021-09-03] MEDS: LEVOTHYROXINE SODIUM 50 MCG TABLET PO SCH (10:01)
[2021-09-03 16:23] VITALS: BP 138/92
--- NOTE | 2021-09-03 18:35 | NUR ---
RN closing note Patient confused upon assessment. reorientation provided. tolerating on room air. No respiratory distress noted. KEVIN IV access patent. Vital signs stable. no fever noted. Antibiotics given as scheduled. seizure precaution in place. repositioned every 2 hours. fall precaution in place. Daughter updated. All needs attended to and met. Call light within reach. Unable to work with PT due to confusion.
--- NOTE | 2021-09-03 19:20 | NUR ---
RN NOTE PT AWAKE IN BED, VERBAL WITH CONFUSION, TALKING TO SELF. REORIENTATION PROVIDED. RESPIRATIONS EVEN/UNLABORED, ON ROOM AIR, LETY WELL. NO S/S OF PAIN NOTED. IV SITE: KEVIN MIDLINE INTACT/PATENT/FLUSHES WELL. PT IN NO ACUTE DISTRESS. SEIZURE PRECAUTIONS OBSERVED. SAFETY MEASURES IN PLACE. WILL CONT TO MONITOR.
[2021-09-03 20:00] VITALS: BP 128/62
[2021-09-03] MEDS: INSULIN GLARGINE, 100 UNIT/ML CARTRIDGE SQ SCH (21:56)
[2021-09-03] MEDS: ATORVASTATIN 10 MG TABLET PO SCH (22:16)
[2021-09-03] MEDS: TAMSULOSIN 0.4 MG CAP.SR.24H PO SCH (22:16)
--- NOTE | 2021-09-04 01:36 | NUR ---
RN NOTE NOTED KEVIN MIDLINE DISLODGED AND CANNULA OUT. REMOVED AND PLACED DRESSING. NO ACTIVE BLEEDING NOTED. RESTARTED IV ON R-FA #22G WITH GOOD BLOOD RETURN AND LETY WELL. WILL CONT TO MONITOR.
[2021-09-04] MEDS: CEFEPIME 2 GM in IV D5W 100 ML IV SCH ×2 (05:02→13:48)
[2021-09-04] MEDS: VANCOMYCIN 1.25 GM in IV D5W 250 ML IV SCH ×2 (05:42→14:22)
[2021-09-04] MEDS: BLOOD SUGAR DIAGNOSTIC 1 EACH STRIP IN SCH ×2 (06:35→11:48)
[2021-09-04] MEDS: INSULIN REGULAR, HUMAN 100 UNIT/ML 3 ML VIAL SQ PRN ×2 (06:36→11:51)
[2021-09-04 07:29] LABS: CALCIUM, SERUM 7.3 mg/dL (8.5-10.1); CREATININE 0.6 mg/dL (0.6-1.3); MAGNESIUM 1.7 mg/dL (1.8-2.4); PHOSPHORUS 3.2 mg/dL (2.5-4.9); POTASSIUM 2.9 mmol/L (3.5-5.1)
--- NOTE | 2021-09-04 07:30 | NUR ---
MS RN OPENING NOTE RECEIVED PATIENT RESTING ON BED, A/O X 1, OPENS EYES, WITH VERBAL AND TACTILE STIMULI. ON ROOM AIR TOLERATING WELL. NO RESPIRATORY DISTRESS NOTED. BREATHING EVEN AND UNLABORED. WITH LEFT CHEST WALL PACEMAKER. R WRIST 22 G PATENT AND INTACT, SALINE LOCKED AT THIS TIME. NO PAIN AT THIS TIME. SAFETY MEASURES IN PLACE, CALL LIGHT WITHIN REACH, BED LOCKED AND IN THE LOWEST POSITION, SIDE RAILS UP X 3 AND PADDED FOR SEIZURE PRECAUTION. WILL CONTINUE TO MONITOR.
[2021-09-04 07:32] LABS: BASOPHILS # (AUTO) 0.1 K/uL (0.0-0.2); BASOPHILS % (AUTO) 0.5 % (0.0-2.0); EOSINOPHILS % (AUTO) 4.4 % (0.0-6.0); HEMATOCRIT 38 % (39-51); HEMOGLOBIN 12.7 g/dL (13.5-17.5); LYMPHOCYTES # (AUTO) 2.5 K/uL (0.8-4.8); LYMPHOCYTES % (AUTO) 19.4 % (20.0-44.0); MEAN CORPUSCULAR HGB CONC 34 g/dl (31.0-36.0); MEAN CORPUSCULAR VOLUME 94 fL (80-96); MONOCYTES # (AUTO) 1.3 K/uL (0.1-1.30); NEUTROPHILS # (AUTO) 8.5 K/uL (1.8-8.9); NEUTROPHILS % (AUTO) 65.7 % (43.0-81.0); PLATELET COUNT (AUTO) 211 K/uL (150-450); RED BLOOD CELL COUNT(AUTO) 3.97 MIL/uL (4.5-6.0); WHITE BLOOD COUNT (AUTO) 12.9 K/uL (4.3-11.0)
[2021-09-04] MEDS: LEVOTHYROXINE SODIUM 50 MCG TABLET PO SCH (07:46)
[2021-09-04 08:45] VITALS: BP 118/57
[2021-09-04] MEDS: PANTOPRAZOLE 40 MG/PACK PACK PO SCH (09:27)
[2021-09-04] MEDS: POLYETHYLENE GLYCOL 3350 17 GM POWD.PACK PO SCH (09:27)
[2021-09-04] MEDS: METOPROLOL TARTRATE 25 MG TABLET PO SCH (09:28)
[2021-09-04] MEDS: QUETIAPINE FUMARATE 25 MG TABLET PO SCH (09:28)
[2021-09-04] MEDS: ESCITALOPRAM OXALATE (10 MG) 10 MG TABLET PO SCH (09:29)
[2021-09-04] MEDS: VALSARTAN 80 MG TABLET PO SCH (09:29)
[2021-09-04] MEDS: FINASTERIDE (5 MG) 5 MG TABLET PO SCH (09:29)
[2021-09-04] MEDS: APIXABAN 5 MG TABLET PO SCH (09:36)
[2021-09-04] MEDS: PHENYTOIN SUSP UDC 100 MG/4 ML UDC PO SCH ×2 (09:39→14:51)
[2021-09-04] MEDS: POTASSIUM CHLORIDE 20 MEQ TAB.PRT.SR PO SCH ×4 (10:07→14:16)
[2021-09-04] MEDS: Magnesium 1GM/D5W 100ML PREMIX 100 ML IV SCH ×2 (10:07→11:58)
[2021-09-04] MEDS ORDERED: PHEN125O9 PO (15:16)
[2021-09-04] MEDS ORDERED: Quetiapine Fumarate PO (15:16)
[2021-09-04] MEDS ORDERED: Valsartan 80MG PO (15:16)
[2021-09-04] MEDS ORDERED: METO25TA20 PO (15:16)
[2021-09-04 16:23] VITALS: BP 108/57
--- NOTE | 2021-09-04 17:15 | NUR ---
RN NOTES CALLED TAL FROM [facility] [phone] AT [id number] AND GAVE REPORT.
--- NOTE | 2021-09-04 18:30 | NUR ---
RN NOTES DISCHARGE PATIENT IN STABLE CONDITION . NO PAIN NOTED. NO RESPIRATORY DISTRESS NOTED. NO SOB NOTED. VITAL SIGNS IN STABLE CONDITION. 2 MT CAME FROM AM WEST . ID BAND REMOVED. IV SITE REMOVED , COVERED WITH DRY DRESSING . NO BLEEDING NOTED. VITAL SIGN STABLE. ALL DUE MEDS GIVEN. PATIENT LEFT HOSPITAL IN STABLE CONDITION. MD AND CHARGE NURSE AWARE OF THE DISCHARGE.
== END 2021-09-04 18:30 | DRG 100 ==
LOC: ER 22:52 → TELE 08-28 00:35 → MED 08-31 11:45
PROVIDERS: ADMIT Nurse Practitioner Acute Care; ATTEND Student in an Organized Health Care Education/Training Program
PROC: 05H533Z Insertion of Infusion Device into Right Subclavian Vein, Percutaneous Approach (ICD-10-PCS; principal; 2021-08-30)
PROC: B546ZZA Ultrasonography of Right Subclavian Vein, Guidance (ICD-10-PCS; 2021-08-30)
DX: G40.909 Epilepsy, unspecified, not intractable, without status epilepticus (principal); J69.0 Pneumonitis due to inhalation of food and vomit; I50.23 Acute on chronic systolic (congestive) heart failure; G93.40 Encephalopathy, unspecified; E87.4 Mixed disorder of acid-base balance; I11.0 Hypertensive heart disease with heart failure; M19.90 Unspecified osteoarthritis, unspecified site; D64.9 Anemia, unspecified; E03.9 Hypothyroidism, unspecified; E78.5 Hyperlipidemia, unspecified; E83.42 Hypomagnesemia; Z79.4 Long term (current) use of insulin; Z79.01 Long term (current) use of anticoagulants; N40.0 Benign prostatic hyperplasia without lower urinary tract symptoms; Z85.72 Personal history of non-Hodgkin lymphomas; E87.6 Hypokalemia; K21.9 Gastro-esophageal reflux disease without esophagitis; I48.91 Unspecified atrial fibrillation; F32.A Depression, unspecified; E11.65 Type 2 diabetes mellitus with hyperglycemia; Z95.0 Presence of cardiac pacemaker; Z20.822 Contact with and (suspected) exposure to COVID-19
CPT/HCPCS: 36410; 36415; 36600; 70450-TC; 71045-TC; 80048-TC; 80061-TC; 80076-TC; 80185-TC; 80202-TC; 81001; 82140-TC; 82247-TC; 82248-TC; 82803-TC; 82962-TC; 83605-TC; 83735-TC; 83880; 84100-TC; 84443-TC; 84484-TC; 85025-TC; 86803; 87040-TC; 87081-TC; 87806; 92526; 92611-TC; 93307-TC; 95819-TC; 97110-TC; 97112-TC; 97530-TC; A9563; C9113; G0378; G0480; J0692; J0696; J1165; J1650; J1815; J1940; J2060; J3370; J3475; J3480; J7030; J7040; J7042; J7050; J7060